=== PATIENT | male | born 1960 | race Caucasian/White ===

== ENCOUNTER 2021-01-29 19:40 | Emergency (ER) | payer OTHER ==
[2021-01-29 20:01] VITALS: BP 165/95; PULSE 93; TEMP 98.1; BMI 24.3
[2021-01-29] MEDS ORDERED: DIPHTH,PERTUSS(ACELL),TET 0.5 ML DISP.SYRIN IM ONE ×2 (20:56→21:31)
== END 2021-01-29 22:00 | disposition home or self-care (01) ==
LOC: JER 19:40
PROC: 3E0234Z Introduction of Serum, Toxoid and Vaccine into Muscle, Percutaneous Approach (ICD-10-PCS; principal; 2021-01-29)
DX: S60.511A Abrasion of right hand, initial encounter (principal); S60.512A Abrasion of left hand, initial encounter; S80.211A Abrasion, right knee, initial encounter; S80.212A Abrasion, left knee, initial encounter; W18.42XA Slipping, tripping and stumbling without falling due to stepping into hole or opening, initial encounter
CPT/HCPCS: 90471; 99284-25

== ENCOUNTER 2021-08-31 02:45 | Inpatient (IN) | payer OTHER ==
[2021-08-31 03:57] LABS: BASO % 0.1 % (0-2.0); EOS % 0.5 % (0-4.5); HEMATOCRIT 40.9 % (35.4-49); HEMOGLOBIN 14.2 GM/dL (11.7-16.9); LYMPH % 9.5 % (8-40); MCH 30.8 pg (25.7-33.7); MCHC 34.8 g/dl (32.0-35.9); MEAN CELL VOLUME 88.4 fl (80-96); MEAN PLT VOLUME 9.3 fl (7.5-11.1); MONO % 7.3 % (3.8-10.2); NEUT % 82.6 % (42.8-82.8); PLATELET COUNT 172 10^3/uL (134-434); RBC 4.63 M/mm3 (4.00-5.60); RDW 13.3 % (11.9-15.9); WHITE BLOOD COUNT 10.5 K/mm3 (4.0-10.0)
[2021-08-31 04:18] LABS: CALCIUM 8.9 mg/dL (8.5-10.1)
[2021-08-31 04:19] LABS: ALBUMIN 3.6 g/dl (3.4-5.0); BLOOD UREA NITROGEN 18.9 mg/dL (7-18)
[2021-08-31 04:22] LABS: ACTIVATED PTT 27.7 SECONDS (25.2-36.5); INR 1.15 (0.83-1.09); PROTHROMBIN TIME (PATIENT) 13.2 SEC (9.7-13.0)
[2021-08-31 04:23] LABS: BILIRUBIN,TOTAL 0.4 mg/dL (0.2-1); TOT PROT 6.8 g/dl (6.4-8.2)
[2021-08-31 16:30] LABS: ACTIVATED PTT 26.1 SECONDS (25.2-36.5); INR 1.2 (0.83-1.09); PROTHROMBIN TIME (PATIENT) 13.8 SEC (9.7-13.0)
[2021-08-31] MEDS ORDERED: ATORVASTATIN CA 40 MG TABLET (FP) ONE (22:19)
[2021-08-31] MEDS: ATORVASTATIN CA 40 MG TABLET (FP) PO SCH (22:22)
[2021-09-01] MEDS: HEPARIN NA (PORCINE) 5,000 UNITS/ML 1ML VIAL SQ SCH ×3 (01:54→21:42)
[2021-09-01 02:03] VITALS: BMI 23.2
[2021-09-01 08:50] LABS: BASO % 0.5 % (0-2.0); EOS % 1.3 % (0-4.5); HEMATOCRIT 37.6 % (35.4-49); HEMOGLOBIN 13.1 GM/dL (11.7-16.9); LYMPH % 21.9 % (8-40); MCH 30.5 pg (25.7-33.7); MCHC 34.8 g/dl (32.0-35.9); MEAN CELL VOLUME 87.5 fl (80-96); MEAN PLT VOLUME 9.5 fl (7.5-11.1); NEUT % 65.3 % (42.8-82.8); PLATELET COUNT 167 10^3/uL (134-434); RDW 13.5 % (11.9-15.9); WHITE BLOOD COUNT 6.7 K/mm3 (4.0-10.0)
[2021-09-01 09:20] LABS: BLOOD UREA NITROGEN 23.2 mg/dL (7-18)
[2021-09-01 09:21] LABS: ALBUMIN 3.2 g/dl (3.4-5.0); CREATININE 0.8 mg/dL (0.55-1.3)
[2021-09-01 09:22] LABS: BILIRUBIN,TOTAL 0.6 mg/dL (0.2-1); CALCIUM 8.8 mg/dL (8.5-10.1); TOT PROT 6.2 g/dl (6.4-8.2)
[2021-09-01] MEDS: ASPIRIN COATED 81 MG TABLET.EC PO SCH (10:16)
[2021-09-01] MEDS: INSULIN SLIDING SCALE (NOVOLOG) 1 VIAL SQ SCH ×2 (16:30→21:42)
[2021-09-01] MEDS: LOSARTAN POTASSIUM 50 MG TABLET PO SCH (17:36)
[2021-09-01] MEDS: ATORVASTATIN CA 40 MG TABLET (FP) PO SCH (21:42)
[2021-09-01] MEDS: CLOPIDOGREL BISULFATE 75 MG TABLET (FP) PO SCH (21:42)
[2021-09-02] MEDS: INSULIN SLIDING SCALE (NOVOLOG) 1 VIAL SQ SCH ×4 (06:15→22:07)
[2021-09-02 07:36] LABS: BASO % 0.5 % (0-2.0); EOS % 1.8 % (0-4.5); HEMATOCRIT 38.8 % (35.4-49); HEMOGLOBIN 13.2 GM/dL (11.7-16.9); MCH 30.2 pg (25.7-33.7); MCHC 34.1 g/dl (32.0-35.9); MEAN CELL VOLUME 88.6 fl (80-96); MONO % 9.9 % (3.8-10.2); NEUT % 63.8 % (42.8-82.8); PLATELET COUNT 171 10^3/uL (134-434); RBC 4.37 M/mm3 (4.00-5.60); RDW 13.2 % (11.9-15.9)
[2021-09-02 08:01] LABS: ALBUMIN 3.3 g/dl (3.4-5.0); CALCIUM 8.8 mg/dL (8.5-10.1)
[2021-09-02 08:02] LABS: BLOOD UREA NITROGEN 23.6 mg/dL (7-18)
[2021-09-02 08:03] LABS: CREATININE 0.8 mg/dL (0.55-1.3)
[2021-09-02 08:04] LABS: BILIRUBIN,TOTAL 0.5 mg/dL (0.2-1); TOT PROT 6.3 g/dl (6.4-8.2)
[2021-09-02] MEDS: ASPIRIN COATED 81 MG TABLET.EC PO SCH (09:53)
[2021-09-02] MEDS: LOSARTAN POTASSIUM 50 MG TABLET PO SCH (09:53)
[2021-09-02] MEDS: CLOPIDOGREL BISULFATE 75 MG TABLET (FP) PO SCH (09:53)
[2021-09-02] MEDS: HEPARIN NA (PORCINE) 5,000 UNITS/ML 1ML VIAL SQ SCH ×2 (09:54→22:07)
[2021-09-02] MEDS: ATORVASTATIN CA 40 MG TABLET (FP) PO SCH (22:07)
[2021-09-03] MEDS: INSULIN SLIDING SCALE (NOVOLOG) 1 VIAL SQ SCH ×2 (06:17→11:56)
[2021-09-03] MEDS: ASPIRIN COATED 81 MG TABLET.EC PO SCH (09:41)
[2021-09-03] MEDS: LOSARTAN POTASSIUM 50 MG TABLET PO SCH (09:41)
[2021-09-03] MEDS: CLOPIDOGREL BISULFATE 75 MG TABLET (FP) PO SCH (09:41)
[2021-09-03] MEDS: HEPARIN NA (PORCINE) 5,000 UNITS/ML 1ML VIAL SQ SCH (09:42)
[2021-09-03 14:57] VITALS: BP 160/88; PULSE 85; TEMP 98.4
== END 2021-09-03 18:55 | disposition home or self-care (01) | DRG 45 ==
LOC: JER 02:45 → JERBED 07:05 → J4S 09-01 01:16 → OBSVTOIN 09-01 11:14
PROVIDERS: ADMIT Family Medicine; ATTEND Family Medicine
DX: I63.9 Cerebral infarction, unspecified (principal); R55 Syncope and collapse; E11.9 Type 2 diabetes mellitus without complications; E78.5 Hyperlipidemia, unspecified; I10 Essential (primary) hypertension; R41.82 Altered mental status, unspecified; R00.1 Bradycardia, unspecified
CPT/HCPCS: 0241U-QW; 36415; 70450-TC; 70551-TC; 71045-TC-FY; 80053; 80061; 82962; 83036; 84443; 84484; 85025; 85610; 85730; 93005; 93010; 93306-TC; 93880-TC; 97116-GP; 97161-GP; 99285-25; G0378